=== PATIENT | female | born 2000 | race Caucasian/White ===

== ENCOUNTER 2024-02-03 16:32 | Emergency (ER) | payer MEDICAID, SELFPAY ==
--- NOTE | ~2024-02-03 | US_ITS ---
EXAMINATION: US OB transvaginal DATE: 02/03/2024 22:53 INDICATION: Assess for ectopic TECHNIQUE: Real-time pelvic ultrasound utilizing both a transvaginal and transabdominal probe was pe rformed. The interpreting radiologist was not present for the study. COMPARISON: None. FINDINGS: The uterus measures 7.9 x 3.2 x 4.8 cm. Endometrial complex measures 10 mm thickness with no evident intrauterine gestational sac or fluid. The right ovary measures 3.3 x 2.0 x 2.9 cm. There is increas ed vascular flow along the periphery of a thick-walled centrally anechoic likely corpus luteum cyst i n the right ovary measuring up to 1.9 cm. The left ovary measures 3.1 x 1.4 x 2.2 cm. There is a 1.3 cm complex cystic structure along side the left ovary with 6 x 3 mm peripheral echogenic region witho ut vascular flow on color Doppler. No evident yolk sac. There is however increased vascular flow on c olor Doppler scanning the complex cystic structure. There is no free fluid in the pelvis. IMPRESSION: 1. No evident intrauterine gestational sac which could be consistent with early, failed or ectopic pr egnancy. 2. Indeterminate complex cystic structure along side the left ovary with peripheral echogenic focus f or which differential would include ectopic . Dr. Mandel discussed these findings with Dr. Davidson at 11:15 PM. Reviewed, dictated and finalized at location A. IMPRESSION: 1. No evident intrauterine gestational sac which could be consistent with early , failed or ectopic . 2. Indeterminate complex cystic structure along side the left ovary with periph eral echogenic focus for which differential would include ectopic . Dr Tom Mandel discussed these findings with Dr. Davidson at 11:15 PM.
[2024-02-03 16:39] VITALS: BP 105/58; PULSE 102; RESP 18; TEMP 36.9; O2SAT 100
--- NOTE | 2024-02-03 19:20 | ECG_ITS ---
Test Date: 2024-02-03 20:01:47 Measurements Intervals [place] Rate: 67 P: 68 MI: 128 QRS: 69 QRSD: 86 T: 55 QT: 376 QTc: 399 Interpretive Statements SINUS RHYTHM WITH MARKED SINUS ARRHYTHMIA BORDERLINE T WAVE ABNORMALITY- ANTERIOR LEADS BASELINE ARTIFACT- I, III, AVR, AVL, AVF BORDERLINE ECG No previous ECG available for comparison Electronically Signed On 02-04-2024 06:24:07 CDT by Lee Steinberg D.O.
--- NOTE | 2024-02-03 19:21 | ED.BACK ---
HPI - Back Pain/Injury General Chief Complaint: Back Pain/Injury Stated Complaint: BACK PAIN/ 5 WEEKS Time Seen by Provider: 02/03/24 18:39 History of Present Illness HPI Narrative: 23-year-old female who is reportedly 5 weeks presents to emergency department for low back pain for 2 weeks. Patient states she has had chronic back pain in the past when she was younger from volleyball. States the past 2 weeks her back pain has become more consistent but states it still feels like her normal back pain. She describes it as a muscle ache throughout her low back and states today radiating down her right leg and felt like a muscle cramp. She states the pain feels better with palpation and worse with certain positions. She denies saddle anesthesia, bowel or bladder incontinence or retention, lower extremity weakness, recent injury or trauma. denies dysuria, hematuria, urinary frequency urgency, fever. Denies history of cancer, immunosuppression, IBDU. She also states she had a 3 at home positive test approximately 2 weeks ago. She is . Her LMP was December 27, 2023. She denies vaginal bleeding, abdominal pain or cramping. She does state that she feels very lightheaded every time she stands up. She denies chest pain or shortness of breath, nausea or vomiting. States she is not established with a OBGYN yet but has contacted a OBGYN and is waiting to for a call back to schedule her first appointment. Related Data Allergies Allergy/AdvReac Type Severity Reaction Status Date / Time No Known Allergies Allergy Verified 02/03/24 16:47 Review of Systems Review of Systems: All systems reviewed & are unremarkable except as noted in HPI and below Exam Narrative: GENERAL: Well-appearing, well-nourished, and in no acute distress. HEAD: Normocephalic, atraumatic. EYES: PERRLA and EOMI. ENT: Nares clear, no rhinorrhea or epistaxis. Mucous membranes moist. NECK: Supple. CHEST: Clear to auscultation. No respiratory distress. HEART: Regular rate and rhythm. No murmur heard. Normal peripheral pulses. ABDOMEN: Soft, nontender, nondistended, normal active bowel sounds. no rebound guarding or rigidity. No CVA tenderness BACK: no midline thoracolumbar spinous tenderness, step-offs or deformities. No tenderness to the paraspinous muscles. EXTREMITIES: Normal range of motion. No edema. Bilateral lower extremity strength 5/5. Sensation intact throughout. No saddle anesthesia. SKIN: Warm, dry, no rash. NEURO: No focal deficits. Alert and oriented x3 Course Vital Signs Vital signs: Vital Signs Temperature 98.5 F 02/03/24 16:39 Pulse Rate 102 H 02/03/24 16:39 Respiratory Rate 18 02/03/24 16:39 Blood Pressure 105/58 L 02/03/24 16:39 Pulse Oximetry 100 02/03/24 16:39 Oxygen Delivery Room Air 02/03/24 16:39 Temperature 98.5 F 02/03/24 20:27 Pulse Rate 102 H 02/03/24 16:39 Respiratory Rate 18 02/03/24 16:39 Blood Pressure 105/58 L 02/03/24 16:39 Pulse Oximetry 100 02/03/24 16:39 Oxygen Delivery Room Air 02/03/24 16:39 MDM - Back Pain/Injury MDM Narrative Medical decision making narrative: 23-year-old female who is currently 5 weeks presents to the emergency department for lower back cramping for 2 weeks and lightheadedness today. Vital significant for blood pressure 105/58 and heart rate of 102. She is afebrile and nontoxic appearing. She is neurovascularly intact. No thoracolumbar spinous tenderness. No red flag back pain signs. Given recent , will obtain lab work and beta hCG as her worsening back cramping may be related to a complication. Will also obtain EKG and provide IV fluids and Tylenol and re-evaluate. CBC shows leukocytosis of 11, no bandemia. Chemistries are significant for an AST of 38, ALT of 40 and bilirubin of 2.1. She has no Abdominal pain, no jaundice on exam. Lipase is normal. Urinalysis is unremarkable. beta hCG i
[2024-02-03] MEDS: SODIUM CHLORIDE 0.9% IV 1,000 ML 999 ML IV CONT (19:28)
[2024-02-03] MEDS: ACETAMINOPHEN 500 MG TABLET 1000 MG PO (19:28)
[2024-02-03 19:45] LABS: Basophils Percent Auto 0.3 % (0.2-1.2); Eosinophils Absolute Auto 0.1 K/mm3 (0-0.3); Eosinophils Percent Auto 1.2 % (0-4.4); Hematocrit 42.6 % (37.0-47.0); Hemoglobin 14.3 g/dL (12.0-15.0); Immature Granulocyte Absolute 0.02 K/mm3 (0.00-0.031); Immature Granulocyte Percent A 0.2 % (0-0.5); Lymphocytes Percent Auto 21.8 % (18.3-44.2); Mean Corpuscular HGB Conc 33.6 g/dl (32-36); Mean Corpuscular Hemoglobin 31.8 pg (26-34); Mean Corpuscular Volume 94.7 fl (80-100); Mean Platelet Volume 10.4 fl (7.4-10.4); Monocytes Absolute Auto 0.8 K/mm3 (0.1-0.6); Monocytes Percent Auto 7.5 % (2.6-8.5); Neutrophils Absolute Auto 7.6 K/mm3 (1.3-6.7); Platelet Count Result 286 k/mm3 (150-375); Red Cell Distribution Width 11.9 % (11.5-14.5)
[2024-02-03 19:52] LABS: Appearance Urine Clear (Clear); Bilirubin Urine Negative (Negative); Blood Urine Negative (Negative); Color Urine Yellow (Yellow); Glucose Urine UA Negative (Negative); Ketones Urine Negative (Negative); Leukocyte Esterase Ur Negative LEU/UL (Negative); Nitrate Urine Negative (Negative); Protein Urine Negative (Negative); Specific Grav Ur 1.005 (1.001-1.035); Urobilinogen Urine 0.2 mg/dL (<2.0)
[2024-02-03 19:56] LABS: Add Urine Microscopic? NO; Alanine Aminotransferase 40 U/L (6-35); Albumin Level 5.1 g/dL (3.5-5.1); Alkaline Phosphatase 65 U/L (38-126); Anion Gap 15 mmol/L (4-12); Aspartate Amino Transferase 38 U/L (14-36); Bilirubin,Total 2.1 mg/dL (0.2-1.3); Blood Urea Nitrogen 9 mg/dL (7-17); Calcium 9.7 mg/dL (8.4-10.2); Carbon Dioxide 23 mmol/L (22-30); Chloride 102 mmol/L (98-107); Estimated CRCL calculation 122 ml/min; Estimated Glomerular Filt Rate > 60; Glucose 82 mg/dL (65-110); Potassium 3.9 mmol/L (3.4-5.0); Sodium 140 mmol/L (137-145)
[2024-02-03 20:15] LABS: Beta HCG Quantitative 472.18 mIU/ML
[2024-02-03 20:27] VITALS: TEMP 36.9
[2024-02-03 20:29] LABS: Lipase 88 U/L (23-300)
[2024-02-04] VITALS: BP 110/78; PULSE 92; RESP 17; O2SAT 100
== END 2024-02-04 00:02 | disposition home or self-care (01) ==
PROVIDERS: Emergency Provider Physician Assistant
DX: O26.891 Other specified pregnancy related conditions, first trimester (principal); M54.50 Low back pain, unspecified; O34.81 Maternal care for other abnormalities of pelvic organs, first trimester; N83.202 Unspecified ovarian cyst, left side; Z3A.01 Less than 8 weeks gestation of pregnancy; R94.31 Abnormal electrocardiogram [ECG] [EKG]
CPT/HCPCS: 36415; 76817; 80053; 81003; 83690; 84702; 85025; 93005; 96360; 99284; A9270; J7030

== ENCOUNTER 2024-02-04 11:55 | Outpatient (CLI) | payer MEDICAID, SELFPAY | END 2024-02-04 11:56 | disposition home or self-care (01) | LOC: ANHLAB 11:57 | PROVIDERS: Visit Provider Physician Assistant | DX: Z34.90 Encounter for supervision of normal pregnancy, unspecified, unspecified trimester (principal); Z3A.00 Weeks of gestation of pregnancy not specified | CPT/HCPCS: 36415; 84702 ==

== ENCOUNTER 2024-02-06 11:43 | Outpatient (CLI) | payer OTHER, SELFPAY | END 2024-02-06 11:44 | disposition home or self-care (01) | LOC: ANHLAB 11:47 | PROVIDERS: Visit Provider Obstetrics & Gynecology | DX: O20.0 Threatened abortion (principal); Z3A.00 Weeks of gestation of pregnancy not specified | CPT/HCPCS: 36415; 84702 ==

== ENCOUNTER 2024-02-08 11:04 | Outpatient (CLI) | payer OTHER, SELFPAY | END 2024-02-08 11:05 | disposition home or self-care (01) | PROVIDERS: Visit Provider Obstetrics & Gynecology | DX: O20.0 Threatened abortion (principal); Z3A.00 Weeks of gestation of pregnancy not specified | CPT/HCPCS: 36415; 84702 ==

== ENCOUNTER 2024-02-10 17:31 | Outpatient (CLI) | payer OTHER, SELFPAY | END 2024-02-10 17:32 | disposition home or self-care (01) | PROVIDERS: Visit Provider Obstetrics & Gynecology | DX: O00.90 Unspecified ectopic pregnancy without intrauterine pregnancy (principal); Z3A.00 Weeks of gestation of pregnancy not specified | CPT/HCPCS: 36415; 84702 ==

== ENCOUNTER 2024-02-18 13:16 | Outpatient (RCR) | payer OTHER, SELFPAY | END 2024-05-13 23:59 | disposition home or self-care (01) | LOC: ANHLAB 13:16 | PROVIDERS: PCP Nurse Practitioner; Visit Provider Obstetrics & Gynecology | DX: O00.90 Unspecified ectopic pregnancy without intrauterine pregnancy (principal) | CPT/HCPCS: 36415; 84702 ==

== ENCOUNTER 2024-03-02 15:12 | Day surgery (SDC) | payer OTHER, SELFPAY ==
[2024-03-02] VITALS (9 sets, daily range): BP systolic 75–112; BP diastolic 32–59; PULSE 64–110; RESP 12–20; TEMP 36.4–37.1; O2SAT 99–100
--- NOTE | ~2024-03-02 | US_ITS ---
EXAMINATION: US OB <=14 wk fetus w TV DATE: 03/02/2024 16:28 INDICATION: Abnormal vaginal bleeding in . TECHNIQUE: Real-time transabdominal and transvaginal pelvic ultrasound was performed. COMPARISON: Ultrasound 02/03/2024 FINDINGS: TRANSABDOMINAL ULTRASOUND: The uterus measures 6.0 x 3.2 x 4.4 cm. TRANSVAGINAL ULTRASOUND: There is no visible intrauterine gestational sac. The endometrial complex me asures 4 mm in thickness. The right ovary measures 3.3 x 2.4 x 3.6 cm. The left ovary measures 3.0 x 1.7 x 2.4 cm. There is normal vascular flow in the ovaries. There is free fluid in the pelvis. IMPRESSION: 1. No visible intrauterine gestational sac, which may be normal in early . Ectopic pregnanc y and spontaneous are not excluded. Serial beta-hCGs are recommended. 2. New free fluid in the pelvis. Reviewed, dictated and finalized at location A. IMPRESSION: 1. No visible intrauterine gestational sac, which may be normal in early pregn payal. Ectopic and spontaneous are not excluded. Serial beta- hCGs are recommended. 2. New free fluid in the pelvis.
--- NOTE | 2024-03-02 15:23 | ED.PREGNANCY ---
HPI - General Chief complaint: SYSTEMS ADMINISTRATION ANALYST <Myesha Rae PA-C - Last Filed: 03/03/24 09:16> Stated complaint: confirmed ectopic <Myesha Rae PA-C - Last Filed: 03/03/24 09:16> Time Seen by Provider: 03/02/24 15:23 <Myesha Rae PA-C - Last Filed: 03/03/24 09:16> Focused HPI: This is a 23 year old female about 9 weeks by LMP that presents to the ER for ectopic . Free fluid seen on US today in OB office, sent to the ER. OB is Dr. Venegas. She has received Methotrexate injection. She is currently experiencing vaginal bleeding. GENERAL: Well-appearing, well-nourished, and in no acute distress. HEAD: Normocephalic, atraumatic. CHEST: Clear to auscultation. ?No respiratory distress. HEART: Regular rate and rhythm.? NEURO: ?Alert and oriented x3. Patient screened in triage and initial orders placed.? ?Additional care and disposition to be based upon?diagnostic testing and treatment. <Myesha Rae PA-C - Last Filed: 03/03/24 09:16> History of Present Illness HPI Narrative: This is a 23-year-old female that was approximately 9 months by me last menstrual period with no confirmed IUP on ultrasonography who presents today for concerns of ruptured ectopic from her OB GYNs office. Patient has been managed conservatively with methotrexate outpatient following to injections with resultant abdominal pain and vaginal bleeding. Her last injection was almost 2 weeks prior on the . She went to visit her OBGYN today noted that she had profound free fluid on her abdominal ultrasound and center to the ER for evaluation and suspected ruptured ectopic. Patient on initial counter is awake alert and oriented but states that she is having severe pain in her abdomen, describes pain with even slight movements and jostling of the bed or car ride over here. Denies any nauseousness, vomiting, headache, vision changes, fever, chills. Aside from some vaginal bleeding she has no other discharge or purulent drainage. Denies any urinary complaints. <Jesus Buenrostro MD - Last Filed: 03/02/24 18:09> Related Data Allergies/Adverse reactions: Allergies Allergy/AdvReac Type Severity Reaction Status Date / Time No Known Allergies Allergy Verified 03/02/24 17:00 <Myesha Rae PA-C - Last Filed: 03/03/24 09:16> Review of Systems Review of Systems: As reviewed above in HPI <Jesus Buenrostro MD - Last Filed: 03/02/24 18:09> All systems reviewed & are unremarkable except as noted in HPI and below <Myesha Rae PA-C - Last Filed: 03/03/24 09:16> [facility] Past Medical History Medical History: Medical History Smoker <Myesha Rae PA-C - Last Filed: 03/03/24 09:16> Social History Social History: Social History (Updated 03/03/24 @ 09:15 by Myesha Rae PA-C) Substance use: never <Myesha Rae PA-C - Last Filed: 03/03/24 09:16> Exam Narrative: GENERAL: Well appearing in good spirits but does appear moderately uncomfortable HEAD: [Normocephalic, atraumatic.] EYES: [PERRLA and EOMI.] ENT: Nares clear, no rhinorrhea or epistaxis. Mucous membranes moist. NECK: Supple. CHEST: [Clear to auscultation. No respiratory distress.] HEART: [Regular rate and rhythm]. No murmur heard. [Normal peripheral pulses.] ABDOMEN: Soft, mildly distended, peritoneal abdomen, guarding EXTREMITIES: Normal range of motion. [No edema.] SKIN: Warm, dry, no rash. NEURO: [No focal deficits]. Alert and oriented [x3.] PSYCH: [Normal mood and affect.] <Jesus Buenrostro MD - Last Filed: 03/02/24 18:09> Course Vital Signs Vital signs: Vital Signs Temperature 98.8 F 03/02/24 15:22 Pulse Rate 102 H 03/02/24 15:22 Respiratory Rate 15 03/02/24 15:22 Blood Pressure 100/56 L 03/02/24 15:22 Pulse Oximetry 100 03/02/24 15:22 Oxygen Delivery Room Air 03/02/24 15:22 Temperature 97.9 F 03/02/24 18:11 Pulse Rate
[2024-03-02 15:47] LABS: Basophils Percent Auto 0.5 % (0.2-1.2); Eosinophils Absolute Auto 0.2 K/mm3 (0-0.3); Eosinophils Percent Auto 2.7 % (0-4.4); Hematocrit 30.3 % (37.0-47.0); Hemoglobin 9.9 g/dL (12.0-15.0); Immature Granulocyte Absolute 0.03 K/mm3 (0.00-0.031); Immature Granulocyte Percent A 0.3 % (0-0.5); Lymphocytes Absolute Auto 1.99 K/mm3 (0.9-3.2); Mean Corpuscular HGB Conc 32.7 g/dl (32-36); Mean Corpuscular Hemoglobin 31.2 pg (26-34); Mean Corpuscular Volume 95.6 fl (80-100); Mean Platelet Volume 10.5 fl (7.4-10.4); Monocytes Absolute Auto 0.6 K/mm3 (0.1-0.6); Monocytes Percent Auto 7.4 % (2.6-8.5); Neutrophils Absolute Auto 5.7 K/mm3 (1.3-6.7); Neutrophils Percent Auto 66.1 % (45.5-73.1); Platelet Count Result 263 k/mm3 (150-375); Red Blood Count 3.17 M/mm3 (4.2-5.4); Red Cell Distribution Width 12.1 % (11.5-14.5); White Blood Count 8.7 K/mm3 (4.5-10.0)
[2024-03-02 16:07] LABS: Anion Gap 12 mmol/L (4-12); Blood Urea Nitrogen 7 mg/dL (7-17); Carbon Dioxide 23 mmol/L (22-30); Chloride 104 mmol/L (98-107); Estimated CRCL calculation 122 ml/min; Estimated Glomerular Filt Rate > 60; Glucose 92 mg/dL (65-110); Potassium 3.6 mmol/L (3.4-5.0); Sodium 139 mmol/L (137-145)
[2024-03-02 16:22] LABS: Beta HCG Quantitative 356.79 mIU/ML
[2024-03-02] MEDS: LACTATED RINGERS 1,000 ML 999 ML IV CONT (16:26)
[2024-03-02] MEDS: MORPHINE SULFATE (*CRX) 4 MG/ML INJ IV PUSH (16:26)
[2024-03-02 16:30] LABS: INR 1.1; Prothrombin Time 14.4 Seconds (11.1-14.7)
[2024-03-02] MEDS: ACETAMINOPHEN 500 MG TABLET 1000 MG PO (17:10)
[2024-03-02] MEDS: KETOROLAC 15 MG/ML VIAL (*BKC) IV PUSH (17:10)
[2024-03-02] MEDS: LACTATED RINGERS 1,000 ML 30 ML IV CONT ×3 (17:15→18:40)
--- NOTE | 2024-03-02 17:15 | WPDANESEPPF ---
Anes - Initial Pre Proc Eval Procedure: Operation Date: 03/02/24 17:00 Proposed Procedures p Diagnostic Laparoscopy, Possible Laparotomy - Romario Venegas MD Date/Time: 03/02/24 17:15 Surgeon: Romario Venegas MD Pre Op Diagnosis: confirmed ectopic Patient Data Age: 23 Gender: F Height: 1.6 m Weight: 60 kg Last Vital Signs Temp 37.1 C 03/02/24 15:22 Pulse 102 H 03/02/24 16:29 Resp 18 03/02/24 16:29 BP 107/55 L 03/02/24 16:29 Pulse Ox 100 03/02/24 16:29 O2 Del Method Room Air 03/02/24 15:22 Allergies Allergy/AdvReac Type Severity Reaction Status Date / Time No Known Allergies Allergy Verified 03/02/24 17:00 Home Medications Medication Instructions Recorded Confirmed Type No Home Medications 03/02/24 03/02/24 History Laboratory Tests 03/02/24 15:35 WBC 8.7 K/mm3 (4.5-10.0) RBC 3.17 L M/mm3 (4.2-5.4) Hgb 9.9 L D g/dL (12.0-15.0) Hct 30.3 L % (37.0-47.0) MCV 95.6 fl (80-100) MCH 31.2 pg (26-34) MCHC 32.7 g/dl (32-36) RDW 12.1 % (11.5-14.5) Plt Count 263 k/mm3 (150-375) MPV 10.5 H fl (7.4-10.4) Immature Gran % (Auto) 0.3 % (0-0.5) Neut % (Auto) 66.1 % (45.5-73.1) Lymph % (Auto) 23.0 % (18.3-44.2) Cameron % (Auto) 7.4 % (2.6-8.5) Eos % (Auto) 2.7 % (0-4.4) Baso % (Auto) 0.5 % (0.2-1.2) Lymph # (Auto) 1.99 K/mm3 (0.9-3.2) Cameron # (Auto) 0.6 K/mm3 (0.1-0.6) Eos # (Auto) 0.2 K/mm3 (0-0.3) Baso # (Auto) 0.0 K/mm3 (0.0-0.1) Abs Immat Gran (auto) 0.03 K/mm3 (0.00-0.031) Absolute Neuts (auto) 5.7 K/mm3 (1.3-6.7) Absolute Nucleated RBC 0.000 K/mm3 (0.0-0.012) Nucleated RBC % 0.0 % (0.0-0.2) PT 14.4 Seconds (11.1-14.7) INR 1.1 APTT 28.0 Seconds (22.3-36.8) Sodium 139 mmol/L (137-145) Potassium 3.6 mmol/L (3.4-5.0) Chloride 104 mmol/L (98-107) Carbon Dioxide 23 mmol/L (22-30) Anion Gap 12 mmol/L (4-12) BUN 7 mg/dL (7-17) Creatinine 0.50 L mg/dL (0.7-1.0) Estim Creat Clear Calc 122 ml/min Estimated GFR > 60 (59 - ) Glucose 92 mg/dL (65-110) Calcium 9.0 mg/dL (8.4-10.2) Beta HCG, Quant 356.79 mIU/ML Blood Type O Positive Antibody Screen Negative Screen Not Reportable Baby's Blood Type Not Reportable Baby's ADORE Not Reportable Doses of RhIg Required 0 Patient hx anesthesia problems: none Family hx anesthesia problems: none Results Review: All pre-operative results and documents have been reviewed as part of the pre-operative evaluation. [facility] Past Medical History Medical History Smoker Anes - Eval Final PreProcedure Day of Procedure 03/02/24 17:15 Patient weight: normal Heart: regular rate and rhythm Lungs: clear to auscultation Airway: Mallampati scale class II Neurological: alert and oriented Last oral intake: 4 hours ASA classification: II Emergent: no Anesthetic plan: proceed Anesthesia type and monitoring: general ETT and standard monitoring Results Review: All pre-operative results and documents have been reviewed as part of the pre-operative evaluation. Informed Consent: The patient's anesthetic plan and its attendant risks and benefits were discussed with the patient/family/POA. Questions were solicited and answers provided to the satisfaction of the patient/family/POA.
--- NOTE | 2024-03-02 17:23 | WPDHPUPDATE1 ---
History and Physical Update Update Date/Time: 03/02/24 17:23 History and Physical has been reviewed, including an updated exam of the patient. There are NO changes in the patient's condition. Risks, benefits, and alternatives have been discussed and questions answered. Patient agrees to proceed with procedure.
--- NOTE | 2024-03-02 17:23 | PM.IMHP ---
H&P: HPI History of Present Illness Date/Time: 03/02/24 17:23 Chief Complaint: Pelvic pain Narrative: this patient is a 23-year-old female with a ruptured ectopic and pelvic pain. We agreed to perform diagnostic laparoscopy. The patient understands the details of the procedure. The procedure has been explained in detail. She understands the risks. She understands that injuries may occur that result in hospitalization, more surgery, and severe illness. She understands risk of hemorrhage and infection. She denies any chest pain or shortness of breath. She denies any nausea, vomiting, fever, chills. Review of Systems Review of Systems: All systems reviewed & are unremarkable except as noted in HPI and below Constitutional: Constitutional: Denies chills, Denies fatigue, Denies fever(s) and Denies weakness Eyes: Eyes: Denies blurry vision, Denies change in vision, Denies loss of peripheral vision, Denies loss of vision, Denies other visual disturbances and Denies eye pain ENT: Denies vertigo, Denies dizziness, Denies hearing loss, Denies mouth pain, Denies nasal obstruction, Denies neck mass and Denies neck pain Cardiovascular: Cardiovascular: Denies chest pain, Denies diaphoresis, Denies syncope, Denies leg edema and Denies dyspnea Respiratory: Respiratory: Denies chest congestion, Denies cough, Denies hemoptysis, Denies dyspnea and Denies wheezing Gastrointestinal: Gastrointestinal: Denies abdominal pain, Denies constipation, Denies diarrhea, Denies nausea and Denies vomiting Genitourinary: Genitourinary: Denies hematuria, Denies change in libido, Denies nocturia, Denies genital lesions, Denies flank pain and Denies urinary urgency Musculoskeletal: Musculoskeletal: Denies abnormal gait, Denies back pain, Denies myalgias, Denies arthralgias, Denies joint swelling, Denies muscle weakness and Denies neck pain Integumentary/Breasts: Skin/Breast: Denies swelling, Denies breast pain, Denies breast mass, Denies dry skin, Denies nipple discharge, Denies unusual bruising and Denies jaundice Neurologic: Denies Neuro-related abnormal movements, Denies Abnormal speech present, Denies abnormal gait, Denies behavioral changes, Denies confusion, Denies vertigo, Denies dizziness, Denies syncope, Denies loss of vision, Denies memory loss, Denies convulsions and Denies weakness Psychiatric: Psychiatric: Denies abnormal sleep pattern, Denies behavioral changes, Denies change in libido, Denies confusion, Denies depression, Denies anhedonia and Denies memory loss Endocrine: Endocrine: Reports no additional endocrine complaints, Denies change in libido and Denies fatigue Hematologic/Lymphatic: Hematologic/Lymphatic: Reports no additional hematologic/lymphatic complaints Allergic/Immunologic: Allergic/Immunologic: Reports no additional allergic/immunologic complaints and Denies wheezing PMFSH Past Medical History Medical History Smoker Meds Home Medications and Allergies Home Medications Medication Instructions Recorded Confirmed Type No Home Medications 03/02/24 03/02/24 History Allergies Allergy/AdvReac Type Severity Reaction Status Date / Time No Known Allergies Allergy Verified 03/02/24 17:00 Vital Signs Vital Signs - 24 hr 03/02/24 15:22 03/02/24 16:29 Temperature 98.8 F Pulse Rate 102 H 102 H Respiratory Rate 15 18 Blood Pressure 100/56 L 107/55 L Pulse Oximetry 100 100 Oxygen Delivery Room Air Exam Const: General: cooperative, healthy appearing, comfortable and no acute distress Orientation/consciousness: oriented to person, oriented to place and oriented to time HENMT: Head: normal to inspection Ears: external ears normal Face/Nose/Sinus: Normal external nose present and normal facial exam Face and sinus: normal facial exam Eyes: General: appearance normal, both eyes and all related structures Neck: Neck: normal visual inspection, trachea midline and supple Resp: Auscultation:
--- NOTE | 2024-03-02 18:06 | W.PM.PROC2 ---
Procedure Note - Detailed Date of Procedure 03/02/24 Pre-op Diagnosis confirmed ectopic , hemoperitoneum Post-op Diagnosis Same Procedure Performed Diagnostic laparoscopy, right salpingectomy, evacuation of pelvic hematoma Surgeon Romario Venegas MD Anesthesia General Indications Pelvic pain Findings large posterior cul-de-sac hematoma - 15 cm, right fallopian tube ectopic with rupture and hemorrhage. Description of Procedure The patient was taken to the operating room. She was prepped and draped in the dorsal lithotomy position after induction general anesthesia. A 5 mm incision was made with a scalpel on the abdominal skin in the left upper quadrant of the abdomen. A 5 mm trocar was inserted into the intra-abdominal cavity under direct visualization the scope. In the same fashion a 11 mm left lower quadrant trocar was inserted and a 11 mm infraumbilical trocar was inserted. Hemoperitoneum was evacuated using a suction cannula. Large clot was broken down and evacuated. Had to be irrigated repetitive to break it down the large clot. Right salpingectomy was performed. This was done with the LigaSure cautery device. The mesosalpinx distally risk transected and cauterized between the ovary and fallopian tube. In a stepwise fashion the mesosalpinx was cauterized and transected medially to the cornu of the uterus. The tube there was transected and cauterized. The fallopian tube was amputated placed in endobag and taken out the left lower quadrant trocar site. The pelvis was irrigated. The pneumoperitoneum was reduced. The trocars were removed. Skin was closed with subcuticular 4 micro. The patient's incisions were covered with Dermabond. She was taken recovery room in stable condition. Sponge lap and needle counts were correct x2. Estimated Blood Loss 20 Complications No immediate complications Condition Stable Disposition Same day
[2024-03-02] MEDS: oxyCODONE HCL (*CRX) 5 MG TAB IR PO (19:32)
== END 2024-03-02 19:51 | disposition home or self-care (01) ==
LOC: ANHED 16:35 → ANHSURGERY 16:41
PROVIDERS: Physician Assistant; Emergency Provider Student in an Organized Health Care Education/Training Program; PCP Nurse Practitioner; Visit Provider Obstetrics & Gynecology
PROC: (CPT 49320; principal; 2024-03-02 17:00)
DX: O00.101 Right tubal pregnancy without intrauterine pregnancy (principal); O08.1 Delayed or excessive hemorrhage following ectopic and molar pregnancy; F17.290 Nicotine dependence, other tobacco product, uncomplicated; G89.18 Other acute postprocedural pain
CPT/HCPCS: 59151; 57010; 36415; 76801; 76817; 80048; 84702; 85025; 85461; 85610; 85730; 86850; 86900; 86901; 88305; 96374; 99285; A9270; J0330; J1100; J1170; J1885; J2250; J2270; J2405; J2704; J3010; J7120